=== PATIENT | female | born 1985 | race Caucasian/White ===

== ENCOUNTER 2016-12-11 10:31 | Inpatient (IN) | payer BC ==
[2016-12-11] VITALS (17 sets, daily range): BP systolic 107–137; BP diastolic 58–83
[~2016-12-11] VITALS: Ht 167.6 cm; Wt 89.0 kg
[2016-12-11] MEDS ORDERED: OXYTOCIN INJ 20 UNIT in NS 1000ml 1,000 ML IV PRN ×2 (11:05→13:25)
[2016-12-11] MEDS ORDERED: AMPICILLIN INJ 2,000 MG in SODIUM CHLORIDE 100 ML IV SCH ×2 (11:05→13:25)
[2016-12-11] MEDS ORDERED: CALCIUM CARBONATE CHEWABLE 300 MG (TUMS) TABLET PO PRN ×2 (11:05→13:25)
[2016-12-11] MEDS ORDERED: SODIUM CHLORIDE FLUSH 10 ML SYR IV PRN ×2 (11:05→13:25)
[2016-12-11 11:36] LABS: MEAN CORPUSCULAR HEMOGLOBIN 32.1 PG (26.0-34.0); MEAN CORPUSCULAR HGB CONC 34.7 g/dL (31.0-37.0); MEAN PLATELET VOLUME 12.4 FL (6.0-9.5); WHITE BLOOD COUNT 9.93 10^3uL (4.0-11.0)
[2016-12-11] MEDS ORDERED: AMPICILLIN 2000 MG VIAL ONE (11:51)
[2016-12-11] MEDS ORDERED: SODIUM CHLORIDE 100 ML ONE (11:52)
[2016-12-11] MEDS ORDERED: ROPIVACAINE 1% 10 MG/ML (NAROPIN) 20 ML AMPUL ONE ×2 (12:28→12:46)
[2016-12-11] MEDS ORDERED: OXYTOCIN 10 UNIT/ML (PITOCIN) 1 ML VIAL ONE (13:17)
[2016-12-11] MEDS ORDERED: AMPICILLIN INJ 1,000 MG in SODIUM CHLORIDE 50 ML IV SCH ×2 (13:25→15:05)
[2016-12-11] MEDS ORDERED: ONDANSETRON 2 MG/ML (Z0FRAN) 2 ML VIAL ONE (14:40)
[2016-12-11] MEDS ORDERED: ONDANSETRON 2 MG/ML (Z0FRAN) 2 ML VIAL IV PRN (14:45)
[2016-12-11] MEDS ORDERED: LANOLIN OINTMENT 28 GM TUBE TOP PRN (16:15)
[2016-12-11] MEDS ORDERED: oxyCODONE/ACETAMINOPHEN 5MG-325 MG (PERCOCET) TABLET PO PRN (16:15)
[2016-12-11] MEDS: IBUPROFEN 600 MG (MOTRIN) TAB PO SCH ×2 (16:15→21:26)
[2016-12-11 19:13] LABS: BILIRUBIN,URINE Negative (Negative); CLARITY,URINE Clear; COLOR,URINE Yellow; GLUCOSE, URINE (UA) Negative (Negative); LEUKOCYTE ESTERASE ,URINE Negative (Negative); UROBILINOGEN,URINE 0.2 mg/dL (0.2-1.0)
[2016-12-11] MEDS: DOCUSATE SODIUM 100 MG (COLACE) CAP PO SCH (21:26)
[2016-12-12] MEDS: IBUPROFEN 600 MG (MOTRIN) TAB PO SCH ×5 (04:04→18:48)
[2016-12-12 07:32] LABS: MEAN CORPUSCULAR HGB CONC 35.1 g/dL (31.0-37.0); MEAN PLATELET VOLUME 12.7 FL (6.0-9.5); WHITE BLOOD COUNT 8.52 10^3uL (4.0-11.0)
[2016-12-12 07:35] LABS: MEAN CORPUSCULAR HEMOGLOBIN 32.1 PG (26.0-34.0)
[2016-12-12] MEDS ORDERED: RHO(D) IMMUNE GLOBULIN 1,500 UNIT/2 ML SYRINGE IM SCH (08:25)
[2016-12-12] MEDS ORDERED: M-M-R II (MEASLES,MUMPS,RUBELLA) VACCINE SC SCH (09:00)
[2016-12-12 09:50] VITALS: BP 118/64
--- NOTE | 2016-12-12 12:14 | NUR ---
MMR given at this time per Dr. order. SEE EMAR.
[2016-12-12 20:11] VITALS: BP 120/70
[2016-12-12] MEDS: DOCUSATE SODIUM 100 MG (COLACE) CAP PO SCH (21:00)
[2016-12-13] MEDS: IBUPROFEN 600 MG (MOTRIN) TAB PO SCH ×3 (03:16→15:47)
--- NOTE | 2016-12-13 08:15 | NUR ---
Dr Mena in room talking with pt and . Nurse at bedside as well.
[2016-12-13 08:42] VITALS: BP 118/72
--- NOTE | 2016-12-13 09:51 | NUR ---
Pt up showering independently. Infant taken to nursery.
--- NOTE | 2016-12-13 15:30 | NUR ---
Education book reviewed with patient and spouse. Discharge instructions reviewed, patient denies and questions or concerns at this time. Encouraged to call OB department or Dr office with any questions or concerns.
--- NOTE | 2016-12-13 15:55 | NUR ---
Patient discharged from OB unit. properly secured into carrier, carried by nurse. Patient denies needing wheelchair. Patient escorted to private vehicle and infant carrier secured into car seat base.
== END 2016-12-13 15:55 | disposition home or self-care (01) | DRG 775 ==
LOC: OB 10:31 → EUOP 10:31 → OB 11:05
PROVIDERS: ADMIT Family Medicine; ATTEND Family Medicine
PROC: 10E0XZZ Delivery of Products of Conception, External Approach (ICD-10-PCS; principal; 2016-12-11)
DX: O99.824 Streptococcus B carrier state complicating childbirth (principal); O26.893 Other specified pregnancy related conditions, third trimester; Z78.9 Other specified health status; Z67.41 Type O blood, Rh negative; Z3A.38 38 weeks gestation of pregnancy; Z37.0 Single live birth
CPT/HCPCS: 36415; 81003; 85027; 85461; 86850; 86870; 86900; 86901; 90707; 99202